=== PATIENT | female | born 1965 | race Caucasian/White ===

== ENCOUNTER 2017-06-21 11:11 | Emergency (ER) | payer MEDICAID, OTHER ==
[~2017-06-21] VITALS: Ht 157.5 cm; Wt 91.0 kg
[2017-06-21 16:33] VITALS: BP 154/88
== END 2017-06-21 17:14 | disposition home or self-care (01) ==
LOC: ER 12:32
DX: R05 Cough (principal); Z98.890 Other specified postprocedural states
CPT/HCPCS: 71045; 81025; 87804; 99285

== ENCOUNTER 2018-02-17 11:46 | Emergency (ER) | payer OTHER ==
[~2018-02-17] VITALS: Ht 157.5 cm; Wt 75.0 kg
[2018-02-17 13:25] VITALS: BP 145/96
== END 2018-02-17 15:04 | disposition home or self-care (01) ==
LOC: ER 15:01
DX: M13.842 Other specified arthritis, left hand (principal); M13.841 Other specified arthritis, right hand
CPT/HCPCS: 99283